=== PATIENT | male | born 1945 | race Caucasian/White ===

== ENCOUNTER 2019-12-04 05:15 | Day surgery (SDC) | payer OTHER ==
[~2019-12-04] VITALS: Ht 180.3 cm; Wt 95.5 kg
[2019-12-04 07:35] VITALS: Ht 180.3 cm; Wt 95.5 kg
[2019-12-04 07:41] LABS: HEMATOCRIT 36.6 % (42.0-54.0); HEMOGLOBIN 12.7 g/dL (13.5-17.5); MCH 29.5 pg (26.0-34.0); MCHC 34.7 g/dL (31.0-37.0); MCV 85.1 fL (80.0-100.0); MEAN PLATELET VOLUME 9.9 fL (7.4-10.4); RBC 4.3 10x6/uL (4.20-6.10); RDW 12.9 % (11.5-14.5); WBC 9.4 10x3/uL (4.8-10.8)
[2019-12-04 07:54] LABS: ANION GAP 13.6 mmol/L (8-16); CALCIUM 8.7 mg/dL (8.5-10.1); CARBON DIOXIDE 26.7 mmol/L (21.0-32.0); CREATININE - SERUM 1.5 mg/dL (0.6-1.3); POTASSIUM - SERUM 4.3 mmol/L (3.5-5.1)
--- NOTE | 2019-12-06 17:21 | HP ---
PATIENT: JLUIS YANES MEDICAL RECORD: [id number] ACCOUNT: [id number] LOCATION:[facility] : 47 ADMISSION DATE: 12/04/19 PCP: No PCP HISTORY AND PHYSICAL EXAMINATION CHIEF COMPLAINT: Fecal occult blood positivity. The patient had fecal occult blood positivity on 2 of 3 cards. He also has a history of colon polyps. He is here to undergo colonoscopy. He states that he has had an upper endoscopy remotely, however. PAST MEDICAL AND SURGICAL HISTORY: Hypertension, CABG times 4, gastroesophageal reflux, [id number] diabetes mellitus, history of colon polyps. SOCIAL HISTORY: Nonsmoker. HOME MEDICINES: Reviewed. ALLERGIES: SULFA. PHYSICAL EXAMINATION: GENERAL: The patient does not appear acutely ill. He does appear chronically ill. VITAL SIGNS: Reviewed. EARS: External ears appear normal. EYES: Extraocular movements are intact. NECK: Trachea is midline. CHEST: No intercostal retractions. PULMONARY: Nonlabored. IMPRESSION: 1. History of occult blood positivity. 2. History of colon polyps, in need of surveillance colonoscopy. PLAN: Surveillance colonoscopy. TRANSINT:[id number] Voice Confirmation ID: [id number] DOCUMENT ID: [id number] DEMOND HUANG MD at 1721 CC: NYA CLEANING MD [id number] DICTATION DATE: 12/04/19 1157 RENTAL CLERK TOOL AND EQUIPMENT: 12/04/[address] [facility] 12/04/19 [place] [id number] [place] [id number]
--- NOTE | 2019-12-06 17:21 | OP ---
PATIENT NAME: JLUIS YANES MEDICAL RECORD: [id number] :47 LOCATION:[facility] ADMISSION DATE: SURGEON: DEMOND HUANG MD DATE OF OPERATION: 12/04/2019 PREOPERATIVE DIAGNOSES: 1. History of colon polyps. 2. Fecal occult blood positivity. POSTOPERATIVE DIAGNOSES: 1. History of colon polyps. 2. Fecal occult blood positivity. 3. Numerous colon polyps, the largest of which was a 1.2 cm sessile polyp. PROCEDURES: 1. Total colonoscopy to cecum. 2. Hot biopsy forceps polypectomy times 1. 3. Endoscopic ablation of 14 small colorectal polyps without biopsying these polyps. The ablation was performed with the argon plasma chlorine operator. SURGEON: Demond Huang MD BRAZE OPERATOR: None. BLOOD LOSS: Minimal. ANESTHESIA: IV sedation. ENDOSCOPIC COURSE: The patient was conveyed to endoscopy suite electively on 12/04/2019. IV sedation was induced by the anesthesia staff. The patient was placed in the Frazier position. A digital rectal examination was performed. A colonoscope was inserted through the anus. It was easily advanced to the cecum. The prep was adequate. I slowly withdrew the endoscope. I irrigated and aspirated extensively. I utilized normal imaging as well as narrow band imaging. I dragged the folds. The pullback was greater than 18-minute pullback. One hot biopsy forceps polypectomy was performed. The other polyps were all smaller than a centimeter and all were sessile polyps. I elected to ablate these utilizing the argon plasma chlorine operator with the right colon setting in the forced mode. I ablated all of these polyps that I could identify. A retroflexed view was obtained of the rectum. I then unretroflexed the scope and removed it under direct vision. The patient was conveyed back to his room. There was no need for the patient to follow up with me in the office unless he develops complication related to this operative procedure. His next colonoscopy, which is surveillance colonoscopy, should take place in 3 years that would be in November of 2022. TRANSINT:[id number] Voice Confirmation ID: [id number] DOCUMENT ID: [id number] OPERATIVE REPORT [id number] JOAQUÍN,JLUISDEMOND VERDUGO MD at 1727 CC: NYA CLEANING MD [id number] DICTATION DATE: 12/04/19 1345 FLOOR WORKER: 12/04/19 1426 [facility] 12/04/19 [facility] [address] [facility] [address]
== END 2019-12-04 14:10 ==
LOC: D.OPS 05:15
PROVIDERS: Anesthesiology; ATTEND Surgery
DX: K63.5 Polyp of colon (principal); Z86.010 Personal history of colon polyps; R19.5 Other fecal abnormalities